=== PATIENT | male | born 1960 | race Caucasian/White ===

== ENCOUNTER 2016-11-22 18:35 | Emergency (ER) | payer MEDICARE, MEDICAID ==
--- NOTE | 2016-11-22 18:57 | ED.PDOC ---
History of Present Illness - General Chief Complaint: Respiratory Problem Stated Complaint: cough and nasal congestion Time Seen by Provider: 11/22/16 18:51 Source: patient Exam Limitations: no limitations - History of Present Illness Initial Comments: He stated that he had been having dry cough and nasal congestion for a week and could not shake it off.Had flu shot end of june. Timing/Duration: other - 7 days Severity: moderate Improving Factors: nothing Worsening Factors: nothing Associated Symptoms: denies symptoms, loss of appetite Allergies/Adverse Reactions: Allergies NO KNOWN ALLERGY Allergy (Verified 11/22/16 19:20) Home Medications: Ambulatory Orders Dicyclomine HCl [Bentyl] 20 mg PO QID PRN #20 tab 03/04/16 Klonopin 03/04/16 Lipitor 03/04/16 Seroquel 03/04/16 Albuterol Inhaler [Ventolin Hfa Inhaler] 2 puff INH QID PRN #1 inh 11/22/16 Chlorpheniramine Maleate [Chlor-Trimeton Allergy] 12 mg PO ACHS #30 tab Dextromethorphan-Guaifenesin [Mucinex Dm 30-600 mg] 1 tab PO ACHS #30 tab Review of Systems - Review of Systems Constitutional: States: no symptoms reported EENTM: States: see HPI, nose congestion Respiratory: States: see HPI, cough Cardiology: States: no symptoms reported Gastrointestinal/Abdominal: States: no symptoms reported Genitourinary: States: no symptoms reported Musculoskeletal: States: no symptoms reported Skin: States: no symptoms reported Neurological: States: emotional problems Endocrine: States: no symptoms reported Hematologic/Lymphatic: States: no symptoms reported Past Medical History (General) - Patient Medical History Hx Seizures: No Hx Stroke: No Hx Dementia: No Hx Asthma: No Hx of COPD: No Hx Cardiac Disorders: No Hx Congestive Heart Failure: No Hx Pacemaker: No Hx Hypertension: No Hx Thyroid Disease: No Hx Diabetes: No Hx Gastroesophageal Reflux: No Hx Renal Disease: No Hx Cancer: No Hx of HIV: No Hx Hepatitis C: No Hx MRSA: No Surgical History: cholecystectomy, other - polypectomy colon - Vaccination History Hx Tetanus, Diphtheria Vaccination: No Hx Influenza Vaccination: Yes Hx Pneumococcal Vaccination: No - Social History Hx Tobacco Use: No Hx Alcohol Use: No Hx Substance Use: No Hx Substance Use Treatment: No Hx Depression: No Hx Physical Abuse: No Hx Emotional Abuse: No Hx Suspected Abuse: No - Activities of Daily Living Patient Lives Alone: No - lives with family Family Medical History - Family History Mother Family History: No Known Living Status: Physical Exam - Physical Exam General Appearance: Alert, No apparent distress Eye Exam: bilateral normal Ears, Nose, Throat: hearing grossly normal, normal ENT inspection, normal pharynx Neck: non-tender, full range of motion, normal inspection Respiratory: chest non-tender, no respiratory distress, wheezing - mild Cardiovascular/Chest: normal peripheral pulses, regular rate, rhythm, no edema, no murmur Peripheral Pulses: radial,right: 2+, radial,left: 2+ Gastrointestinal/Abdominal: normal bowel sounds, non tender, soft, no organomegaly, no pulsatile mass Back Exam: normal inspection, no CVA tenderness, no vertebral tenderness Extremity: non-tender, normal inspection, no pedal edema Neurologic: no motor/sensory deficits, alert, oriented x 3 Skin Exam: normal color, warm/dry Progress - Results/Orders Results/Orders: 11/22/16 19:01 Chest,2 Views [RAD] Stat 11/22/16 19:58 GROUP A STREP SCREEN, RAPID Stat 11/23/16 09:00 [facility] Daily Laboratory Results WBC 5.7 K/mm3 (4.8-10.8) 11/22/16 19: RBC 4.73 M/mm3 (4.70-6.10) 11/22/16 19:17 Hgb 15.4 gm/dL (14.0-18.0) 11/22/16 19: Hct 44.3 % (42.0-52.0) 11/22/16 19: MCV 93.6 fl (80.0-94.0) 11/22/16 19: MCH 32.5 pg (27.0-31.0) H 11/22/16 19: MCHC 34.7 g/dL (33.0-37.0) 11/22/16 19: RDW 13.9 % (11.5-14.5) 11/22/16 19:17 Plt Count 192 K/mm3 (130-400) 11/22/16 19: MPV 9.6 fl (7.40-10.4) 11/22/16 19:17 Absolute Neuts (auto) 3.40 K/uL (1.8-6.8) 11/22/16 19:17 Absolute Lymphs (auto) 1.70 K/uL (1.0-3.4) 11/22/16 19:17 Absolute Monos (auto) 0.50 K/uL (0.2-0.8) 11/22/16 19:17 Absolute Eos (auto) 0.10 K/uL (0.0-0.4) 11/22/16 19:17 Absolute Basos (auto) 0.10 K/uL (0.0-0.1) 11/22/16 19:17 Neutrophils % 59.9 % (42.0-78.0) 11/22/16 19:17 Lymphocytes % 30.3 % (20.0-50.0) 11/22/16 19:17 Monocytes % 7.9 % (2.0-9.0) 11/22/16 19:17 Eosinophils % 1.0 % (1.0-5.0) 11/22/16 19:17 Basophils % 0.9 % (0.0-2.0) 11/22/16 19:17 flu swab-negative - EKG/XRAY/CT XRAY: chest - no acute abnormalities noted ,atelectasis ,no consolidation Departure - Departure Clinical Impression: Acute bronchitis, viral, Acute bronchospasm Time of Disposition: 20:08 Disposition: Discharge to Home or Self Care Condition: Good Instructions: DI for Acute Bronchitis Referrals: Angelique Lockhart NP [Primary Care Provider] - 1-2 Weeks Prescriptions: Chlorpheniramine Maleate [Chlor-Trimeton Allergy] 12 mg PO ACHS #30 tab Dextromethorphan-Guaifenesin [Mucinex Dm 30-600 mg] 1 tab PO ACHS #30 tab Albuterol Inhaler [Ventolin Hfa Inhaler] 2 puff INH QID PRN #1 inh PRN Reason: Cough Home Medications: Ambulatory Orders Dicyclomine HCl [Bentyl] 20 mg PO QID PRN #20 tab 03/04/16 Klonopin 03/04/16 Lipitor 03/04/16 Seroquel 03/04/16 Albuterol Inhaler [Ventolin Hfa Inhaler] 2 puff INH QID PRN #1 inh 11/22/16 Chlorpheniramine Maleate [Chlor-Trimeton Allergy] 12 mg PO ACHS #30 tab Dextromethorphan-Guaifenesin [Mucinex Dm 30-600 mg] 1 tab PO ACHS #30 tab
[2016-11-22] MEDS ORDERED: BENZONATATE PERLES 100 MG CAP PO ONE (19:02)
[2016-11-22] MEDS ORDERED: diphenhydrAMINE HCL 25 MG CAP PO ONE (19:03)
[2016-11-22] MEDS ORDERED: IPRATROPIUM/ALBUTEROL 3 ML VIAL NEB ONE ×2 (19:23→19:36)
[2016-11-22 19:36] VITALS: BP 111/78; TEMP 97.3
[2016-11-22 19:42] VITALS: O2SAT 100
--- NOTE | 2016-11-22 20:24 | RAD ---
EXAM DESCRIPTION: Chest,2 Views CLINICAL HISTORY: cough COMPARISON: None FINDINGS: Cardiac silhouette is within normal limits. There is no focal parenchymal or pleural disease. There is no acute osseous process visualized. IMPRESSION: No evidence of acute cardiopulmonary disease. Electronically signed by: Martinez Cuellar MD 11/22/2016 7:19 PM [employer]ON[employer] SUPERVISOR
[2016-11-23] MEDS ORDERED: ALBUTEROL INHALER 64 PUFF/8GM INH SCH (08:00)
--- NOTE | 2016-12-15 23:51 | RAD ---
EXAM DESCRIPTION: Chest,2 Views CLINICAL HISTORY: cough COMPARISON: None FINDINGS: Cardiac silhouette is within normal limits. There is no focal parenchymal or pleural disease. There is no acute osseous process visualized. IMPRESSION: No evidence of acute cardiopulmonary disease. 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
--- NOTE | 2016-12-16 05:55 | RAD ---
EXAM DESCRIPTION: Chest,2 Views CLINICAL HISTORY: cough COMPARISON: None FINDINGS: Cardiac silhouette is within normal limits. There is no focal parenchymal or pleural disease. There is no acute osseous process visualized. IMPRESSION: No evidence of acute cardiopulmonary disease. Electronically signed by: Martinez Cuellar MD 11/22/2016 7:19 PM STRATEGY PLANNING CONSULTANT
== END 2016-11-22 20:38 | disposition home or self-care (01) ==
LOC: ER 18:35
DX: J20.8 Acute bronchitis due to other specified organisms (principal); Z79.899 Other long term (current) drug therapy
CPT/HCPCS: 36415; 71020; 85025; 87070; 87502; 87651; 94640; J7620; Q0163

== ENCOUNTER 2019-01-09 02:40 | Emergency (ER) | payer MEDICARE, MEDICAID ==
[2019-01-09] MEDS ORDERED: ONDANSETRON INJ 4 MG/2 ML VIAL IV ONE (02:53)
[2019-01-09] MEDS ORDERED: MORPHINE SULFATE INJ 10 MG/ML VIAL IV ONE (03:17)
--- NOTE | 2019-01-09 03:21 | ED.PDOC ---
History of Present Illness - General Chief Complaint: Problem Stated Complaint: Left flank pain Time Seen by Provider: 01/09/19 02:52 Source: patient Exam Limitations: no limitations - History of Present Illness Initial Comments: Patient presents with left flank pain that started tonight. It is sharp, constant, worse with movement, better with rest. He has had previous episodes that he says were "kidney stones". He also complains of N/V since the pain started. No other complaints. Timing/Duration: 1-3 hours Severity: moderate Improving Factors: rest Worsening Factors: movement Associated Symptoms: nausea/vomiting Allergies/Adverse Reactions: Allergies NO KNOWN ALLERGY Allergy (Verified 11/22/16 19:20) Home Medications: Ambulatory Orders Dicyclomine HCl [Bentyl] 20 mg PO QID PRN #20 tab 03/04/16 Klonopin 03/04/16 Lipitor 03/04/16 Seroquel 03/04/16 Albuterol Inhaler [Ventolin Hfa Inhaler] 2 puff INH QID PRN #1 inh 11/22/16 Chlorpheniramine Maleate [Chlor-Trimeton Allergy] 12 mg PO ACHS #30 tab 11/22/16 Dextromethorphan-Guaifenesin [Mucinex Dm 30-600 mg] 1 tab PO ACHS #30 tab 11/22/16 Acetaminophen W/ Codeine [Tylenol W/ CODEINE #3] 1 ea PO Q6HRS PRN #20 01/09/19 Ondansetron HCl [Zofran] 4 mg PO Q6HRS PRN #10 tab 01/09/19 Review of Systems - Review of Systems Constitutional: States: no symptoms reported EENTM: States: no symptoms reported Respiratory: States: no symptoms reported Cardiology: States: no symptoms reported Gastrointestinal/Abdominal: States: see HPI Genitourinary: States: no symptoms reported Musculoskeletal: States: no symptoms reported Skin: States: no symptoms reported Neurological: States: no symptoms reported Endocrine: States: no symptoms reported Hematologic/Lymphatic: States: no symptoms reported Past Medical History (General) - Patient Medical History Hx Seizures: No Hx Stroke: No Hx Dementia: No Hx Asthma: No Hx of COPD: No Hx Cardiac Disorders: No Hx Congestive Heart Failure: No Hx Pacemaker: No Hx Hypertension: No Hx Thyroid Disease: No Hx Diabetes: No Hx Gastroesophageal Reflux: No Hx Renal Disease: No Hx Cancer: No Hx of HIV: No Hx Hepatitis C: No Hx MRSA: No MRSA Source:: Wound Surgical History: cholecystectomy, tonsillectomy - Vaccination History Hx Tetanus, Diphtheria Vaccination: No Hx Influenza Vaccination: No Hx Pneumococcal Vaccination: No Immunizations Up to Date: No - Social History Hx Tobacco Use: No Hx Alcohol Use: No Hx Substance Use: No Hx Substance Use Treatment: No Hx Depression: No Feels Threatened In Home Enviroment: No Feels Threatened In a Relationship: No Hx Physical Abuse: No Hx Emotional Abuse: No Hx Suspected Abuse: No - Activities of Daily Living Hospice Agency (if applicable):: None - Female History Patient is a Female of Child Bearing Age (10 -59 yrs old): No Family Medical History - Family History Mother Family History: No Known Living Status: Physical Exam - Physical Exam General Appearance: Obvious distress - Mild distress Eye Exam: bilateral normal Ears, Nose, Throat: normal ENT inspection Neck: non-tender, full range of motion, supple Respiratory: lungs clear, normal breath sounds Cardiovascular/Chest: regular rate, rhythm Gastrointestinal/Abdominal: normal bowel sounds, non tender, soft Back Exam: CVA tenderness (L) Extremity: normal range of motion, non-tender, normal inspection Neurologic: no motor/sensory deficits, alert, normal mood/affect, oriented x 3 Skin Exam: normal color Lymphatic: no adenopathy Progress - Progress Progress: 01/09/19 04:50 Laboratory Tests 01/09/19 01/09/19 01/09/19 02:53 02:53 03:17 WBC 6.9 RBC 3.70 L Hgb 12.7 L Hct 36.3 L MCV 98.0 H MCH 34.2 H MCHC 34.9 RDW 14.3 Plt Count 190 MPV 9.5 Absolute Neuts (auto) 3.90 Absolute Lymphs (auto) 2.20 Absolute Monos (auto) 0.80 Absolute Eos (auto) 0.10 Absolute Basos (auto) 0.10 Neutrophils % 55.6 Lymphocytes % 31.3 Monocytes % 11.1 H Eosinophils % 1.2 Basophils % 0.8 Sodium 132 L Potassium 3.3 L Chloride 100 L Carbon Dioxide 22 Anion Gap 13.3 BUN 11 Creatinine 0.94 BUN/Creatinine Ratio 11.7 Random Glucose 128 H Serum Osmolality 265.6 L Calcium 8.5 Urine Color Yellow Urine Appearance Clear Urine pH 6.5 Ur Specific [place] 1.020 Urine Protein Trace Urine Glucose (UA) Negative Urine Ketones Negative Urine Blood Moderate H Urine Nitrite Negative Urine Bilirubin Negative Urine Urobilinogen 0.2 Ur Leukocyte Esterase Negative Urine RBC 40-50 H Urine WBC 0-1 Ur Epithelial Cells [address] showed 2 mm calculus at left UVJ. Patient received Toradol 30 mg in the ambulance and morphine 4 mg IV in the E.D. He also received Zofran 4 mg IV x one in the E.D. and Phenergan 25 mg IM x one. Sent with RX for tylenol #3 and zofran. Care instructions given. E.R. warnings given. Questions were elicited and answered. Patient voiced understanding and agreement with the plan. Departure - Departure Clinical Impression: Ureteral stone Disposition: Discharge to Home or Self Care Condition: Good Departure Forms: ED Discharge - Pt. Copy, Patient Portal Self Enrollment Instructions: DI for Kidney Stones Diet: resume usual diet Activity: increase activity as tolerated Referrals: Angelique Lockhart NP [Primary Care Provider] - 1-2 Weeks Prescriptions: Acetaminophen W/ Codeine [Tylenol W/ CODEINE #3] 1 ea PO Q6HRS PRN #20 PRN Reason: Pain Ondansetron HCl [Zofran] 4 mg PO Q6HRS PRN #10 tab PRN Reason: Nausea--Moderate Home Medications: Ambulatory Orders Dicyclomine HCl [Bentyl] 20 mg PO QID PRN #20 tab 03/04/16 Klonopin 03/04/16 Lipitor 03/04/16 Seroquel 03/04/16 Albuterol Inhaler [Ventolin Hfa Inhaler] 2 puff INH QID PRN #1 inh 11/22/16 Chlorpheniramine Maleate [Chlor-Trimeton Allergy] 12 mg PO ACHS #30 tab 11/22/16 Dextromethorphan-Guaifenesin [Mucinex Dm 30-600 mg] 1 tab PO ACHS #30 tab 11/22/16 Acetaminophen W/ Codeine [Tylenol W/ CODEINE #3] 1 ea PO Q6HRS PRN #20 01/09/19 Ondansetron HCl [Zofran] 4 mg PO Q6HRS PRN #10 tab 01/09/19 Additional Instructions: Increase oral fluids. Take medications as prescribed. Follow up with your regular doctor next week if pain continues. Return to the E.R. for temperature above 100.4. Critical Care Note - Critical Care Note Total Time (mins): 35
[2019-01-09] MEDS ORDERED: PROMETHAZINE HCL INJ 25 MG/ML VIAL ONE (04:12)
[2019-01-09] MEDS ORDERED: PROMETHAZINE HCL INJ 25 MG/ML VIAL IM ONE (04:14)
--- NOTE | 2019-01-09 04:29 | CT ---
EXAM DESCRIPTION: CT ABDOMEN AND PELVIS WITHOUT CONTRAST CLINICAL HISTORY: possible ureteral stone COMPARISON: 07/07/2015 TECHNIQUE: CT of the abdomen and pelvis without IV contrast. Evaluation of the solid organs and vasculature is suboptimal due to lack of IV contrast. DLP: 1290.90 mGy-cm FINDINGS: Lung Bases: Minimal bibasilar dependent atelectasis. Bones: No destructive bone lesions identified. Abdomen: Liver: The liver has normal size and decreased density. Gallbladder: Prior cholecystectomy. Spleen, Pancreas, and Adrenal Glands: The spleen, pancreas, and adrenal glands are unremarkable. Kidneys: There is a 0.2 cm obstructing calculus at the left UVJ producing mild left hydroureter and hydronephrosis. Unchanged nonobstructing left renal calculus. No right-sided hydronephrosis. Vasculature: Aortoiliac atherosclerosis. IVC is unremarkable. Stomach: The stomach and duodenum have normal course. Other: No free intraperitoneal air. No free fluid or lymphadenopathy. Pelvis: Bladder: Urinary bladder is otherwise unremarkable. Bowel: No dilated loops of large or small bowel. Scattered diverticula of the colon. No pericolic inflammatory change. Appendix: The appendix is not identified. Pelvis: Prostate is not enlarged. IMPRESSION: 1. There is a 0.2 cm obstructing calculus at the left UVJ producing mild left hydroureter and hydronephrosis. 2. Punctate nonobstructing left nephrolithiasis. 3. Hepatic steatosis. 4. Diverticulosis without evidence of acute diverticulitis. This exam was performed according to our departmental dose-optimization program, which includes automated exposure control, adjustment of the mA and/or kV according to patient size and/or use of iterative reconstruction technique. Electronically signed by: Chris Rodriguez 01/09/2019 4:26 AM CDT
[2019-01-09 05:32] VITALS: BP 131/90; TEMP 98.1; O2SAT 97
== END 2019-01-09 05:25 | disposition home or self-care (01) ==
LOC: ER 02:40
DX: N13.2 Hydronephrosis with renal and ureteral calculous obstruction (principal)
CPT/HCPCS: 36415; 74176; 80048; 81001; 85025; J2270; J2405; J2550

== ENCOUNTER → 2019-08-03 | Outpatient (CLI) | payer MEDICARE, MEDICAID ==
--- NOTE | 2019-08-03 19:04 | CT ---
EXAM DESCRIPTION: Abdomen/Pelvis w/wo Contrast CLINICAL HISTORY: 58 years Male ABD PAIN COMPARISON: 01/09/2019. TECHNIQUE: Contiguous axial images obtained through the abdomen and pelvis without IV contrast. Reformatted images obtained. This exam was performed according to our department optimization program which includes automated exposure control, adjustment of the mA and/or kv according to patient size and/or use of iterative reconstruction technique. FINDINGS: Mild scarring/atelectasis in the lower lungs. Fatty replacement in the liver. The spleen and pancreas appear unremarkable. No adrenal masses. Similar tiny nonobstructing left renal calculus. No hydronephrosis or ureteral calculi. Changes from previous cholecystectomy. No aneurysmal dilatation of the aorta. No bowel obstruction. The appendix appears unremarkable. Scattered colonic diverticula. No significant free pelvic fluid. Degenerative changes in the spine. IMPRESSION: No acute intra-abdominal abnormality is identified. Tiny nonobstructing left renal calculus. Fatty replacement in the liver. Colonic diverticulosis without diverticulitis. Electronically signed by: Raúl Castillo MD 08/03/2019 6:53 PM CDT
== END ==
LOC: LAB.O 17:01
PROVIDERS: ATTEND Nurse Practitioner Family
DX: K57.30 Diverticulosis of large intestine without perforation or abscess without bleeding (principal); K76.0 Fatty (change of) liver, not elsewhere classified; N20.0 Calculus of kidney

== ENCOUNTER → 2020-08-23 | Outpatient (CLI) | payer MEDICARE, MEDICAID ==
--- NOTE | 2020-08-24 16:10 | RAD ---
EXAM DESCRIPTION: Metastatic Series CLINICAL HISTORY: MONOCLONAL GAMMOPATHY COMPARISON: None. TECHNIQUE: Multiple films of the entire skeleton FINDINGS: Skull is normal in appearance. The sella is normal in appearance. Imaging of the cervical spine reveals mild degenerative changes at the C3-4 C4-5 and C5-6 levels. The thoracic spine is intact. Mild osteopenia is observed. No destructive or lytic process is seen. Surgical clips are seen in the right upper quadrant. The humerus is are normal in appearance. The forearms are also normal in appearance. Mild acetabular osteophyte formation is observed in the pelvis. No destructive or lytic process is seen. Mild degenerative changes are observed in the lower lumbar spine. The femurs are intact. The tibia and fibular are also intact. No lytic or blastic process is seen. IMPRESSION: Normal metastatic survey. No evidence metastatic neoplasm is seen. Electronically signed by: Mario Cabral MD 08/24/2020 4:08 PM [facility]
== END ==
LOC: RAD 14:00
PROVIDERS: ATTEND Internal Medicine Hematology & Oncology
DX: D47.2 Monoclonal gammopathy (principal)

== ENCOUNTER 2020-10-22 02:44 | Emergency (ER) | payer MEDICARE, MEDICAID ==
[2020-10-22] MEDS ORDERED: SODIUM CHLORIDE 0.9% (FLUSH) 10 ML SYG IV PRN (03:05)
[2020-10-22] MEDS ORDERED: SODIUM CHLORIDE 0.9% 1000ML 1,000 ML IVS ONE ×2 (03:05→04:50)
[2020-10-22] MEDS ORDERED: ONDANSETRON INJ 4 MG/2 ML VIAL IV ONE (03:05)
--- NOTE | 2020-10-22 03:27 | ED.PDOC ---
History of Present Illness - General Chief Complaint: GI Problem Stated Complaint: nausea and vomiting 21 hours Time Seen by Provider: 10/22/20 03:01 Source: patient, RN notes reviewed, Vital Signs reviewed Exam Limitations: no limitations - History of Present Illness Initial Comments: Patient is a 59-year-old white male with a history of multiple myeloma who underwent his second round of chemo 2 days ago who presents with nausea and vomiting for the last day. Patient states been able able to hold anything down. Nothing makes nausea and vomiting better. It is worse when he tries to eat or drink anything. He has had some intermittent diarrhea also. The symptoms are constant. He feels like they are getting worse. Additionally patient has a necrotic eschar on the left lower abdomen where he received his first round of chemo shot last week. Patient denies any fevers or chills. Patient complains of a stabbing searing pain over that necrotic eschar. It is tender to palpation. Is moderate in intensity. It is constant. Nothing makes it better. Timing/Duration: 24 hours Severity: moderate Improving Factors: nothing Worsening Factors: eating Associated Symptoms: loss of appetite, malaise, nausea/vomiting Allergies/Adverse Reactions: Allergies Ketorolac Tromethamine [From Toradol] Allergy (Verified 10/22/20 03:27) Home Medications: Ambulatory Orders Acyclovir 200 mg PO BID 10/22/20 Amoxicillin & Pot Clavulanate [Augmentin 250-62.5 mg/5Ml] 1 tablet PO MONTHLY 10/22/20 Clindamycin HCl [Cleocin] 300 mg PO Q6H #40 capsule 10/22/20 Cyanocobalamin [B12] 1,000 mcg PO MONTHLY 10/22/20 Dexamethasone 20 mg PO WKLY 10/22/20 Diclofenac Sodium ER 100 mg PO DAILY 10/22/20 Fish Oil + D3 5427-6303 mg-Unit 1 tablet PO DAILY 10/22/20 Jtaoltpb-Miwwoylugv-Dvplioues 1 inch TOP TID 10/22/20 Ondansetron HCl [Zofran] 4 mg PO Q8HRS PRN 10/22/20 Ondansetron [Ondansetron Odt] 4 mg PO Q6H #20 tab 10/22/20 Potassium Chloride [K-Tab] 20 meq PO DAILY 10/22/20 Quetiapine Fumarate 1 tablet PO DAILY 10/22/20 cloNAZepam [Klonopin] 1 tablet PO TID 10/22/20 Review of Systems - Review of Systems Constitutional: States: see HPI, malaise, weakness. Denies: chills, fever EENTM: States: no symptoms reported. Denies: eye pain, blurred vision, double vision, throat pain, throat swelling, mouth pain Respiratory: States: no symptoms reported. Denies: cough, orthopnea, short of breath, stridor, wheezing Cardiology: States: no symptoms reported. Denies: chest pain, edema, palpitations, syncope Gastrointestinal/Abdominal: States: see HPI, abdominal pain, diarrhea, nausea, vomiting Genitourinary: States: no symptoms reported. Denies: dysuria, frequency Musculoskeletal: States: no symptoms reported. Denies: back pain, joint pain, neck pain Skin: States: see HPI, change in color, other - LLQ eschar Neurological: States: no symptoms reported, weakness. Denies: headache, tingling, tremors Endocrine: States: no symptoms reported. Denies: increased hunger, increased thirst, increased urine Hematologic/Lymphatic: States: see HPI, swollen glands. Denies: blood clots, easy bleeding All other Systems: Reviewed and Negative, No Change from Baseline Past Medical History (General) - Patient Medical History Hx Seizures: No Hx Stroke: No Hx Dementia: No Hx Asthma: No Hx of COPD: No Hx Cardiac Disorders: No Hx Congestive Heart Failure: No Hx Pacemaker: No Hx Hypertension: No Hx Thyroid Disease: No Hx Diabetes: No Hx Gastroesophageal Reflux: No Hx Renal Disease: No Hx Cancer: No Hx of HIV: No Hx Hepatitis C: No Hx MRSA: No Hx Other PMH: Yes - Multiple myeloma MRSA Source:: Wound Surgical History: cholecystectomy, tonsillectomy - Vaccination History Hx Tetanus, Diphtheria Vaccination: No Hx Influenza Vaccination: Yes Hx Pneumococcal Vaccination: Yes Immunizations Up to Date: Yes - Social History Hx Tobacco Use: No Hx Chewing Tobacco Use: No Hx Alcohol Use: No Hx Substance Use: No Hx Substance Use Treatment: No Hx Depression: Yes Feels Threatened In Home Enviroment: No Feels Threatened In a Relationship: No Hx Physical Abuse: No Hx Emotional Abuse: No Hx Suspected Abuse: No - Activities of Daily Living Hospice Agency (if applicable):: None - Female History Patient is a Female of Child Bearing Age (10 -59 yrs old): No Family Medical History - Family History Mother Family History: No Known Living Status: Physical Exam - Physical Exam General Appearance: Alert, Anxious, Obvious distress, Ill Appearing, Unkempt Eye Exam: bilateral normal Ears, Nose, Throat: hearing grossly normal, normal pharynx - except for dry mucous membranes Neck: non-tender, full range of motion, supple Respiratory: chest non-tender, lungs clear, normal breath sounds, no respiratory distress Cardiovascular/Chest: normal peripheral pulses, no edema, no gallop, no murmur, tachycardia Peripheral Pulses: radial,right: 2+, radial,left: 2+ Gastrointestinal/Abdominal: normal bowel sounds, soft, tenderness - generalized discomfort to palpation. , other - LLQ eschar with surround redness. 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 10/22/20 05:13 Patient is markedly improved after 2 L of IV fluids. He no longer has any nausea after the IV Zofran. CT scan shows that he is got left lower quadrant abdominal wall cellulitis. Radiology does not read it as such, but I also see right lower quadrant early cellulitis in the abdominal wall. Patient does have some redness over that area of the right lower quadrant and therefore I think that he is got bilateral lower abdominal wall cellulitis. Patient had IV antibiotics here and I will start him on p.o. clindamycin. I will discharge the patient home with follow-up with his PCP and his oncologist on Friday. I discussed this plan of care with the patient he voices understanding and agreement. Raúl Bunch M.D. #[id number] - Results/Orders Results/Orders: EXAM: CT Abdomen and Pelvis With Intravenous Contrast CLINICAL HISTORY: The patient is 59 years old and is Male; LLQ redness with necrotic eschar TECHNIQUE: Axial computed tomography images of the abdomen and pelvis with intravenous contrast. Sagittal and coronal reformatted images were created and reviewed. This CT exam was performed using one or more of the following dose reduction techniques: automated exposure control, adjustment of the mA and/or kV according to patient size, and/or use of iterative reconstruction technique. COMPARISON: CT of the abdomen and pelvis August 03, 2019 FINDINGS: LUNG BASES: Unremarkable. No mass. No consolidation. ABDOMEN: LIVER: The liver is fatty. GALLBLADDER AND BILE DUCTS: Surgical clips are present in the right upper quadrant, consistent with previous cholecystectomy. PANCREAS: Fatty infiltration of the pancreas is noted. SPLEEN: Unremarkable. ADRENALS: Unremarkable. No mass. KIDNEYS AND URETERS: Punctate left intrarenal calcification is present. The kidneys enhance symmetrically. No obstructing renal or ureteral calculus is seen. There is no hydronephrosis or hydroureter of either kidney. STOMACH AND BOWEL: The stomach is minimally filled with fluid and air. The proximal small bowel is decompressed. Multiple fluid-filled loops of small bowel are present. Minimal enhancement of the mucosa is noted. There is no transition point. Fluid and stool are present throughout the colon. There is a focal area of narrowing of the mid transverse colon, best appreciated on coronal 84 there is no evidence of obstruction. Scattered colonic diverticula involving the left colon are present. PELVIS: APPENDIX: No findings to suggest acute appendicitis. BLADDER: The bladder is moderately distended. REPRODUCTIVE: Unremarkable as visualized. ABDOMEN and PELVIS: INTRAPERITONEAL SPACE: Trace free fluid is present within the pelvis. No free air. BONES/JOINTS: The bones demonstrate a diffusely mottled appearance, similar to prior exam. SOFT TISSUES: Focal skin thickening along the left lower abdominal wall with underlying inflammatory fat stranding is present. VASCULATURE: Unremarkable. No abdominal aortic aneurysm. LYMPH NODES: Unremarkable. No enlarged lymph nodes. IMPRESSION: 1. Focal area of suggested masslike narrowing involving the mid transverse colon. While findings could be secondary to focal incomplete distention, recommend correlation with laboratory values and direct visualization to exclude underlying malignancy. 2. Focal skin thickening along the left lower abdominal wall with underlying inflammatory fat stranding is present. Findings suggest cellulitis. There is no evidence of underlying drainable fluid collection. 3. Findings suggest a diffuse enteritis without evidence of obstruction. Electronically signed by: Cris Cary MD 10/22/2020 4:14 AM PAYMENT PROCESSOR 10/22/20 03:05 IV Care:Saline Lock per Protoc QSHIFT Sodium Chloride 0.9% (Flush) [Saline Flush Syringe] 10 ml IV PRN PRN 10/22/20 03:06 Hold Metformin x 48Hrs [id number] 10/22/20 03:10 URINALYSIS Stat 10/22/20 03:15 BLOOD CULTURE Stat 10/22/20 04:50 Sodium Chloride 0.9% 1000ML [Ns 1000 ml] 1,000 ml IVS ONCE Laboratory Results - last 24 hr 10/22/20 10/22/20 10/22/20 03:15 03:15 03:15 WBC 5.0 RBC 3.96 L Hgb 13.4 L Hct 37.7 L MCV 95.2 H MCH 33.9 H MCHC 35.6 RDW 14.0 Plt Count 168 MPV 9.1 Absolute Neuts (auto) Not Reportable Absolute Lymphs (auto) Not Reportable Absolute Monos (auto) Not Reportable Absolute Eos (auto) Not Reportable Neutrophils % Not Reportable Neutrophils % (Manual) 61.0 Lymphocytes % Not Reportable Lymphocytes % (Manual) 32.0 Monocytes % Not Reportable Monocytes % (Manual) 7.0 Eosinophils % Not Reportable Basophils % Not Reportable Platelet Estimate Normal Sodium 138 Potassium 4.2 Chloride 100 L Carbon Dioxide 26 Anion Gap 16.2 BUN 17 Creatinine 1.19 BUN/Creatinine Ratio 14.3 Random Glucose 154 H Serum Osmolality 280.3 Lactic Acid 1.5 Calcium 10.6 H Total Bilirubin 0.9 Direct Bilirubin 0.2 Indirect Bilirubin 0.7 AST 140 H ALT 133 H Alkaline Phosphatase 62 Serum Total Protein 10.4 H Albumin 4.0 Lipase 54 H Vital Signs 10/22/20 10/22/20 02:45 04:00 Temperature 98 F Pulse Rate [ 106 H 79 pulse ox] Respiratory 18 18 Rate Blood Pressure 121/92 121/83 [Left Arm] O2 Sat by Pulse 99 93 L Oximetry Departure - Departure Clinical Impression: Chemotherapy induced diarrhea, Chemotherapy induced nausea and vomiting, Cellulitis of left abdominal wall, Cellulitis of right abdominal wall, Dehydration Time of Disposition: 05:16 Disposition: Discharge to Home or Self Care Condition: Fair Departure Forms: ED Discharge - Pt. Copy, Patient Portal Self Enrollment Instructions: Cellulitis (Skin Infection), Adult (DC), Nausea and Vomiting With Cancer Treatment, Dealing With Nausea and Vomiting From the Drugs You Take, Dehydration, Adult (DC) Diet: resume usual diet Activity: increase activity as tolerated Referrals: Angelique Lockhart NP [Primary Care Provider] - 1-2 Days Prescriptions: Clindamycin HCl [Cleocin] 300 mg PO Q6H #40 capsule Ondansetron [Ondansetron Odt] 4 mg PO Q6H #20 tab Home Medications: Ambulatory Orders Acyclovir 200 mg PO BID 10/22/20 Amoxicillin & Pot Clavulanate [Augmentin 250-62.5 mg/5Ml] 1 tablet PO MONTHLY 10/22/20 Clindamycin HCl [Cleocin] 300 mg PO Q6H #40 capsule 10/22/20 Cyanocobalamin [B12] 1,000 mcg PO MONTHLY 10/22/20 Dexamethasone 20 mg PO WKLY 10/22/20 Diclofenac Sodium ER 100 mg PO DAILY 10/22/20 Fish Oil + D3 5623-6456 mg-Unit 1 tablet PO DAILY 10/22/20 Ucclyglz-Jrfdaqfrkx-Ltfitzehx 1 inch TOP TID 10/22/20 Ondansetron HCl [Zofran] 4 mg PO Q8HRS PRN 10/22/20 Ondansetron [Ondansetron Odt] 4 mg PO Q6H #20 tab 10/22/20 Potassium Chloride [K-Tab] 20 meq PO DAILY 10/22/20 Quetiapine Fumarate 1 tablet PO DAILY 10/22/20 cloNAZepam [Klonopin] 1 tablet PO TID 10/22/20
--- NOTE | 2020-10-22 04:16 | CT ---
EXAM: CT Abdomen and Pelvis With Intravenous Contrast CLINICAL HISTORY: The patient is 59 years old and is Male; LLQ redness with necrotic eschar TECHNIQUE: Axial computed tomography images of the abdomen and pelvis with intravenous contrast. Sagittal and coronal reformatted images were created and reviewed. This CT exam was performed using one or more of the following dose reduction techniques: automated exposure control, adjustment of the mA and/or kV according to patient size, and/or use of iterative reconstruction technique. COMPARISON: CT of the abdomen and pelvis August 03, 2019 FINDINGS: LUNG BASES: Unremarkable. No mass. No consolidation. ABDOMEN: LIVER: The liver is fatty. GALLBLADDER AND BILE DUCTS: Surgical clips are present in the right upper quadrant, consistent with previous cholecystectomy. PANCREAS: Fatty infiltration of the pancreas is noted. SPLEEN: Unremarkable. ADRENALS: Unremarkable. No mass. KIDNEYS AND URETERS: Punctate left intrarenal calcification is present. The kidneys enhance symmetrically. No obstructing renal or ureteral calculus is seen. There is no hydronephrosis or hydroureter of either kidney. STOMACH AND BOWEL: The stomach is minimally filled with fluid and air. The proximal small bowel is decompressed. Multiple fluid-filled loops of small bowel are present. Minimal enhancement of the mucosa is noted. There is no transition point. Fluid and stool are present throughout the colon. There is a focal area of narrowing of the mid transverse colon, best appreciated on coronal 84 there is no evidence of obstruction. Scattered colonic diverticula involving the left colon are present. PELVIS: APPENDIX: No findings to suggest acute appendicitis. BLADDER: The bladder is moderately distended. REPRODUCTIVE: Unremarkable as visualized. ABDOMEN and PELVIS: INTRAPERITONEAL SPACE: Trace free fluid is present within the pelvis. No free air. BONES/JOINTS: The bones demonstrate a diffusely mottled appearance, similar to prior exam. SOFT TISSUES: Focal skin thickening along the left lower abdominal wall with underlying inflammatory fat stranding is present. VASCULATURE: Unremarkable. No abdominal aortic aneurysm. LYMPH NODES: Unremarkable. No enlarged lymph nodes. IMPRESSION: 1. Focal area of suggested masslike narrowing involving the mid transverse colon. While findings could be secondary to focal incomplete distention, recommend correlation with laboratory values and direct visualization to exclude underlying malignancy. 2. Focal skin thickening along the left lower abdominal wall with underlying inflammatory fat stranding is present. Findings suggest cellulitis. There is no evidence of underlying drainable fluid collection. 3. Findings suggest a diffuse enteritis without evidence of obstruction. Electronically signed by: Cris Cary MD 10/22/2020 4:14 AM CO FOUNDER
[2020-10-22] MEDS ORDERED: CLINDAMYCIN INJ (VIAL) 600 MG in SODIUM CHLORIDE 0.9% 50ML 50 ML IVPB ONE (04:19)
[2020-10-22] MEDS ORDERED: SODIUM CHLORIDE 0.9% 1000ML 1,000 ML ONE (04:50)
[2020-10-22 05:54] VITALS: O2SAT 94
[2020-10-22 05:55] VITALS: BP 125/84; TEMP 97.8
== END 2020-10-22 05:40 | disposition home or self-care (01) ==
LOC: ER 02:44
DX: K52.1 Toxic gastroenteritis and colitis (principal); T45.1X5A Adverse effect of antineoplastic and immunosuppressive drugs, initial encounter; E86.0 Dehydration; L03.311 Cellulitis of abdominal wall; C90.00 Multiple myeloma not having achieved remission; F32.9 Major depressive disorder, single episode, unspecified; Z79.899 Other long term (current) drug therapy; Z88.8 Allergy status to other drugs, medicaments and biological substances
CPT/HCPCS: 74177; 80048; 80076; 83605; 83690; 85025; 87040; A4216; J2405; J3490; J7030